=== PATIENT | male | born 1965 | race Caucasian/White ===

== ENCOUNTER 2018-12-27 16:48 | Emergency (ER) | payer OTHER, SELFPAY ==
[2018-12-27 17:13] VITALS: BMI 35.5
--- NOTE | 2018-12-27 17:30 | ED.ABDPAIN ---
HPI - Abdominal Pain <COY Doyle - Last Filed: 12/27/18 22:18> General Chief Complaint: Abdominal Pain Stated Complaint: ABD PAIN Time Seen by Provider: 12/27/18 17:29 Source: patient Mode of arrival: ambulatory Limitations: no limitations History of Present Illness HPI narrative: 53-year-old male with history of hypertension is a nonsmoker here for complaint of pain into his umbilical area over the last day. He denies any trauma to the area. He does report increased pain with motion of the torso area. No nausea or vomiting. He denies having any strenuous activities in the past. Last bowel movement was earlier today and was unremarkable. Positive p.o. intake no nausea vomiting. He denies any urinary symptoms. No other concerns or complaints at this timeframe. Related Data Home Medications Medication Instructions Recorded Confirmed citalopram 1 tab PO QDAY #30 08/28/16 12/27/18 melatonin 3 mg PO HS #0 07/24/17 12/27/18 fluticasone 50 mcg/actuation nasal 1 spray NASAL DAILY 12/27/18 12/27/18 spray,suspension Previous Rx's Medication Instructions Recorded hydroxyzine HCl 25 mg tablet 25 mg PO QDAY PRN #30 tab 04/14/18 trazodone 100 mg tablet 100 mg PO HS #30 tab 04/14/18 lisinopril 10 mg tablet 10 mg PO QDAY #90 tab 07/02/18 simvastatin 80 mg tablet 80 mg PO HS #90 tab 07/02/18 temazepam 15 mg capsule 15 mg PO BEDTIME PRN #30 cap 07/02/18 tramadol 50 mg tablet 50 mg PO Q4HP PRN #30 tab 10/05/18 zolpidem 10 mg tablet 10 mg PO BEDTIME PRN #30 tab 10/05/18 Allergies Allergy/AdvReac Type Severity Reaction Status Date / Time No Known Drug Allergies Allergy Verified 12/27/18 16:27 Review of Systems <COY Doyle - Last Filed: 12/27/18 22:18> Constitutional Denies chills, Denies fever(s), Denies lethargy and Denies weakness Eyes Denies change in vision, Denies eye discharge, Denies irritation and Denies loss of vision ENT Ears, Nose, Mouth, and Throat: Denies change in voice, Denies neck pain and Denies sore throat Cardiovascular Denies chest pain, Denies irregular heart rhythm, Denies lightheadedness, Denies palpitations, Denies dyspnea, Denies dyspnea on exertion and Denies orthopnea Respiratory Denies cough, Denies dyspnea, Denies dyspnea on exertion and Denies wheezing Gastrointestinal Gastrointestinal: Denies abdominal pain, Denies change in bowel habits, Denies diarrhea, Denies nausea and Denies vomiting Comments: Pain into umbilical area Musculoskeletal Denies neck pain Neurologic Denies confusion, Denies loss of vision and Denies weakness Psychiatric Denies anxiety, Denies confusion, Denies depression, Denies homicidal ideation and Denies suicidal ideation Endocrine Denies palpitations Hematologic/Lymphatic Denies easy bruising Allergic/Immunologic Denies wheezing PFSH <COY Doyle - Last Filed: 12/27/18 22:18> Medical History Anxiety (Chronic 05/26/16) Essential hypertension (Chronic 05/26/16) Posttraumatic stress disorder (Chronic 05/26/16) Pure hypercholesterolemia (Chronic 05/26/16) Chronic left-sided low back pain without sciatica (Chronic 07/24/17) Primary insomnia (Chronic 07/24/17) Anxiety (Chronic ~1995) Chronic back pain (Chronic ~2000) Hypercholesterolemia (Chronic ~05/2016) Hypertension (Chronic ~05/2016) Insomnia (Chronic ~07/2017) PTSD (post-traumatic stress disorder) (Chronic ~1995) Sleep apnea (Chronic ~2005) Surgical History S/P surgical manipulation of ankle joint (Chronic) Family History Father MS (multiple sclerosis) Mother Pancreatic cancer Social History Smoking Status: Never smoker alcohol intake: never Social History Smoking Status: Never smoker alcohol intake: never Exam <COY Doyle - Last Filed: 12/27/18 22:18> Initial Vital Signs Initial Vital Signs: Vital Signs Temperature 98.0 F 12/27/18 17:32 Pulse Rate 91 H 12/27/18 17:32 Respiratory Rate 18 12/27/18 17:32 Blood Pressure 143/93 H 12/27/18 17:32 Pulse Oximetry 96 12/27/18 17:32 Const General: cooperative and well developed Nutritional Appearance: well nourished Orientation: alert, awake, oriented x3 and not confused [facility] Mouth: oral mucosae normal and mucous membranes abnormal Throat: posterior oropharynx normal Eyes General: appearance normal, both eyes and all related structures Eyelids: eyelids normal Conjunctivae: conjunctivae normal Sclera: sclerae normal Pupils: PERRL EOM: EOM intact bilaterally Resp Effort & Inspection: normal respiratory effort, able to speak in complete sentences, no respiratory distress and no use of accessory muscles Auscultation: clear to auscultation bilaterally, no rales, no rhonchi and no wheezes Cardio Rate: regular rate Rhythm: regular rhythm Heart Sounds: no click, no gallops, no murmurs and no rubs Pulses: normal peripheral pulses GI Inspection: non-distended Palpation: soft, no hepatosplenomegaly, No guarding, No pulsatile mass and tender Auscultation: normal bowel sounds Other: Tenderness on child palpation to the umbilicus area. No induration or fluctuance felt. No appreciated hernia. Slight amount of erythema to the umbilicus area. No drainage. Neuro General: alert, oriented x3, gait normal and no focal motor deficits Speech: speech normal <Susan Rose DO - Last Filed: 12/28/18 04:28> Initial Vital Signs Initial Vital Signs: Vital Signs Temperature 98.0 F 12/27/18 17:32 Pulse Rate 91 H 12/27/18 17:32 Respiratory Rate 18 12/27/18 17:32 Blood Pressure 143/93 H 12/27/18 17:32 Pulse Oximetry 96 12/27/18 17:32 Course <COY Doyle - Last Filed: 12/27/18 22:18> Orders Ordered: Discontinued Medications Sodium Chloride (Normal Saline 0.9%) 1,000 mls @ 150 mls/hr IV CONT TAMARA Last Infusion: 12/27/18 21:35 Dose: 0 mls/hr Admin: 12/27/18 19:11 Dose: 150 mls/hr Vital Signs - 8 hr 12/27/18 21:33 Pulse Rate 63 Blood Pressure [Right Arm] 163/85 H Pulse Oximetry 96 <Susan Rose DO - Last Filed: 12/28/18 04:28> Orders Ordered: Discontinued Medications Sodium Chloride (Normal Saline 0.9%) 1,000 mls @ 150 mls/hr IV CONT TAMARA Last Infusion: 12/27/18 21:35 Dose: 0 mls/hr Admin: 12/27/18 19:11 Dose: 150 mls/hr Vital Signs - 8 hr 12/27/18 21:33 Pulse Rate 63 Blood Pressure [Right Arm] 163/85 H Pulse Oximetry 96 MDM - Abdominal Pain <COY Doyle - Last Filed: 12/27/18 22:18> Lab Data Result diagrams: 12/27/18 17:42 12/27/18 17:42 Lab Results 12/27/18 12/27/18 12/27/18 Range/Units 17:42 17:42 18:50 WBC 6.1 (4.5-11.0) X10^3/uL RBC 5.14 (4.5-5.9) X10^6/uL Hgb 15.3 (13.5-17.5) g/dL Hct 45.7 (41-53) % MCV 88.9 (80-100) fL MCH 29.7 (26-34) PG MCHC 33.4 (30-36) % RDW 13.3 (11.6-14.8) % Plt Count 253 (150-400) X10^3/uL Neut % (Auto) 62.1 (50-75) % Lymph % (Auto) 25.1 (25-40) % [place] % (Auto) 9.8 (3-14) % Eos % (Auto) 2.7 (2-4) % Baso % (Auto) 0.3 (0-2) % Neut # (Auto) 3800 (3026-2825) /uL Lymph # (Auto) 1500 (0532-2236) /uL [place] # (Auto) 600 (0-900) /uL Eos # (Auto) 200 (0-450) /uL Baso # (Auto) 0 (0-100) /uL Sodium 139 (137-145) mmol/L Potassium 4.1 (3.4-5.1) mmol/L Chloride 101 (98-107) mmol/L Carbon Dioxide 31 (22-32) mmol/L BUN 15 (9-20) mg/dL Creatinine 0.90 (0.66-1.25) mg/dL Estimated GFR > 60.0 (>60) mL/min BUN/Creatinine Ratio 16.7 (6-22) Glucose 135 H (70-100) mg/dL Calcium 9.3 (8.4-10.2) mg/dL Total Bilirubin 0.5 (0.2-1.3) mg/dL AST 29 (17-59) IU/L ALT 34 (21-72) IU/L Alkaline Phosphatase 49 (38-126) U/L Total Protein 7.6 (6.3-8.2) g/dL Albumin 4.4 (3.5-5.0) g/dL Globulin 3.2 (1.7-4.1) g/dL Albumin/Globulin Ratio 1.4 (1.0-2.8) Lipase 76 (23-300) U/L Urine RBC None seen (0-5/HPF) Urine WBC None seen (0-5/HPF) Urine Bacteria None seen (None) Ur Culture Indicated? Cult not indicated Point of care testing: Urine Dip Bedside Urine Glucose Negative Bedside Urine Bilirubin - Negative Bedside Urine Ketone - Negative Urine Specific [place] 1.020 Bedside Urine Occult Blood - Negative Bedside Urine pH 7.0 Bedside Urine Protein - Negative Bedside Urine Urobilinogen 1+ 2mg Bedside Urine Nitrite - Negative Bedside Urine Leukocytes - Negative Esterase Imaging Data US - abdomen: Radiologist's impression: [address] [address] Ultrasound Report Signed Patient: Josiah Akins [facility]#: [id number] : 1965Acct:[id number] Age/Sex: 53 / MDate of Service: 12/27/18 Loc: ED Accession Number: [id number] Procedure: US abdomen complete Ordering Provider: Lawrence Porter PROCEDURE: US ABDOMEN COMPLETE INDICATIONS: Umbilical pain TECHNIQUE: Real-time scanning was performed of the abdominal and retroperitoneal organs, with image documentation. COMPARISON: None. FINDINGS: Liver: Liver is normal in size and demonstrates mildly increased echotexture. Gallbladder: Gallbladder is contracted. No gallstones. The gallbladder wall appears thickened measuring 7.3 mm. No pericholecystic fluid or sonographic Andersen's sign. Biliary ducts: Intrahepatic bile ducts are non-dilated. Extrahepatic bile duct caliber measures 5.6 mm. Normal is 6-7 mm or less in diameter, or 10 mm or less post-cholecystectomy. Pancreas: Not visualized. Spleen: Spleen is normal in size and homogeneous in echotexture. Kidneys: Kidneys are normal in size and echotexture. Right kidney measures 14.0 cm long; left kidney measures 13.5 cm long. No hydronephrosis or nephrolithiasis. No solid masses. Aorta: Visualized aorta is normal in caliber at less than 3 cm. Iliacs: Proximal common iliac arteries are obscured. IVC: Intrahepatic inferior vena cava is patent. Miscellaneous: No free abdominal fluid. In the periumbilical area with pain and redness, there is no mass or fluid collection. No hernia. IMPRESSION: 1. No mass, fluid collection or hernia is identified in the periumbilical area. 2. Diffusely increased hepatic echotexture. This finding is most likely secondary to hepatic fatty infiltration although other hepatocellular disease may have a similar appearance. Recommend clinical correlation. 3. Gallbladder is contracted. Gallbladder wall thickening is noted, which could be partially related to contracted bladder. No gallstones or pericholecystic fluid collection. If there is clinical suspicion for gallbladder disease, MRCP may be obtained for followup evaluation. Dictated by: Fidelia Beltran M.D. on 12/27/2018 at 20:25 Approved by: Fidelia Beltran M.D. on 12/27/2018 at 20:30 MDM Narrative Medical decision making narrative: CBC and Chem panel were obtained were unremarkable. Lipase was obtained was negative. Abdomen ultrasound was obtained and shows no mass no fluid collection or hernia at the periumbilical area. Ultrasound does show findings that are consistent with fatty liver. Gallbladder was contracted and appeared that the gallbladder was contracted he is not painful to the right upper quadrant area and did show that there might be some thickening of the gallbladder wall but this is most likely due to contracted bladder. Do not appreciate gallbladder disorder at this time.. Urinalysis was negative for urinary tract infection. Due to small amount of erythema to the periumbilical area will treat empirically for starting cellulitis with clindamycin. Follow up with primary care provider in the next several days for re-evaluation. Use [id number] Tylenol or Motrin as needed for any discomfot. For any worsening symptoms return to the emergency room. <Susan Milton, DO - Last Filed: 12/28/18 04:28> Lab Data Lab Results 12/27/18 12/27/18 12/27/18 Range/Units 17:42 17:42 18:50 WBC 6.1 (4.5-11.0) X10^3/uL RBC 5.14 (4.5-5.9) X10^6/uL Hgb 15.3 (13.5-17.5) g/dL Hct 45.7 (41-53) % MCV 88.9 (80-100) fL MCH 29.7 (26-34) PG MCHC 33.4 (30-36) % RDW 13.3 (11.6-14.8) % Plt Count 253 (150-400) X10^3/uL Neut % (Auto) 62.1 (50-75) % Lymph % (Auto) 25.1 (25-40) % [place] % (Auto) 9.8 (3-14) % Eos % (Auto) 2.7 (2-4) % Baso % (Auto) 0.3 (0-2) % Neut # (Auto) 3800 (8958-4319) /uL Lymph # (Auto) 1500 (2974-1475) /uL [place] # (Auto) 600 (0-900) /uL Eos # (Auto) 200 (0-450) /uL Baso # (Auto) 0 (0-100) /uL Sodium 139 (137-145) mmol/L Potassium 4.1 (3.4-5.1) mmol/L Chloride 101 (98-107) mmol/L Carbon Dioxide 31 (22-32) mmol/L BUN 15 (9-20) mg/dL Creatinine 0.90 (0.66-1.25) mg/dL Estimated GFR > 60.0 (>60) mL/min BUN/Creatinine Ratio 16.7 (6-22) Glucose 135 H (70-100) mg/dL Calcium 9.3 (8.4-10.2) mg/dL Total Bilirubin 0.5 (0.2-1.3) mg/dL AST 29 (17-59) IU/L ALT 34 (21-72) IU/L Alkaline Phosphatase 49 (38-126) U/L Total Protein 7.6 (6.3-8.2) g/dL Albumin 4.4 (3.5-5.0) g/dL Globulin 3.2 (1.7-4.1) g/dL Albumin/Globulin Ratio 1.4 (1.0-2.8) Lipase 76 (23-300) U/L Urine RBC None seen (0-5/HPF) Urine WBC None seen (0-5/HPF) Urine Bacteria None seen (None) Ur Culture Indicated? Cult not indicated Point of care testing: Urine Dip Bedside Urine Glucose Negative Bedside Urine Bilirubin - Negative Bedside Urine Ketone - Negative Urine Specific [place] 1.020 Bedside Urine Occult Blood - Negative Bedside Urine pH 7.0 Bedside Urine Protein - Negative Bedside Urine Urobilinogen 1+ 2mg Bedside Urine Nitrite - Negative Bedside Urine Leukocytes - Negative Esterase Discharge Plan Departure Patient Disposition: Home Clinical Impression: Umbilical pain Discharge Date/Time: 12/27/18 21:44 Interventions: ED Discharge Assessment Last Done: 12/27/18 21:38 Instructions: Acute Abdominal Pain Activity Restrictions/Additional Instructions: Laboratory results today were unremarkable. Ultrasound was negative for hernia or collection of fluid to the umbilicus area. Differential between muscle strain into the area and starting a skin infection called cellulitis. You are placed on an antibiotic called clindamycin use as directed. Use [id number] Tylenol or Motrin as needed for any discomfort. Follow up with primary care provider in the next several days for re-evaluation. For any worsening symptoms return to the emergency room. Incidental finding that ultrasound shows findings that looks like fatty liver. Prescriptions: No Action fluticasone [Allergy Relief (fluticasone)] 50 mcg/actuation spray,suspension 1 spray NASAL DAILY RF: 0 citalopram 40 MG tablet 1 tab PO QDAY Qty: 30 RF: 6 melatonin 3 MG tablet 3 mg PO HS Qty: 0 RF: 0 trazodone 100 mg tablet 100 mg PO HS Qty: 30 RF: 11 hydroxyzine HCl 25 mg tablet 25 mg PO QDAY PRN (Reason: anxiety) Qty: 30 RF: 11 lisinopril 10 mg tablet 10 mg PO QDAY Qty: 90 RF: 3 simvastatin 80 mg tablet 80 mg PO HS Qty: 90 RF: 3 temazepam 15 mg capsule 15 mg PO BEDTIME PRN (Reason: insomnia) Qty: 30 RF: 0 tramadol 50 mg tablet 50 mg PO Q4HP PRN (Reason: pain) Qty: 30 RF: 1 zolpidem 10 mg tablet 10 mg PO BEDTIME PRN (Reason: insomnia) Qty: 30 RF: 1 Referrals: Henry Fernandez MD [Primary Care Provider] - <Susan Rose DO - Last Filed: 12/28/18 04:28> Cosign ED Attending Adithyaature Attestation: I was immediately available in the department for consultation. Documentation has been reviewed. I agree with assessment and plan.
[2018-12-27 17:32] VITALS: BP 143/93; PULSE 91; RESP 18; TEMP 36.7; O2SAT 96
--- NOTE | 2018-12-27 18:33 | DI.US.S_ITS ---
PROCEDURE: US ABDOMEN COMPLETE INDICATIONS: Umbilical pain TECHNIQUE: Real-time scanning was performed of the abdominal and retroperitoneal organs, with image documentation. COMPARISON: None. FINDINGS: Liver: Liver is normal in size and demonstrates mildly increased echotexture. Gallbladder: Gallbladder is contracted. No gallstones. The gallbladder wall appears thickened measuring 7.3 mm. No pericholecystic fluid or sonographic Andersen's sign. Biliary ducts: Intrahepatic bile ducts are non-dilated. Extrahepatic bile duct caliber measures 5.6 mm. Normal is 6-7 mm or less in diameter, or 10 mm or less post-cholecystectomy. Pancreas: Not visualized. Spleen: Spleen is normal in size and homogeneous in echotexture. Kidneys: Kidneys are normal in size and echotexture. Right kidney measures 14.0 cm long; left kidney measures 13.5 cm long. No hydronephrosis or nephrolithiasis. No solid masses. Aorta: Visualized aorta is normal in caliber at less than 3 cm. Iliacs: Proximal common iliac arteries are obscured. IVC: Intrahepatic inferior vena cava is patent. Miscellaneous: No free abdominal fluid. In the periumbilical area with pain and redness, there is no mass or fluid collection. No hernia. IMPRESSION: 1. No mass, fluid collection or hernia is identified in the periumbilical area. 2. Diffusely increased hepatic echotexture. This finding is most likely secondary to hepatic fatty infiltration although other hepatocellular disease may have a similar appearance. Recommend clinical correlation. 3. Gallbladder is contracted. Gallbladder wall thickening is noted, which could be partially related to contracted bladder. No gallstones or pericholecystic fluid collection. If there is clinical suspicion for gallbladder disease, MRCP may be obtained for followup evaluation. Dictated by: Fidelia Beltran M.D. on 12/27/2018 at 20:25 Approved by: Fidelia Beltran M.D. on 12/27/2018 at 20:30
[2018-12-27 18:45] LABS: Add Manual Diff / Slide Review NO; Basophils Absolute Auto 0 /uL (0-100); Basophils Percent Auto 0.3 % (0-2); Eosinophils Absolute Auto 200 /uL (0-450); Eosinophils Percent Auto 2.7 % (2-4); Hematocrit 45.7 % (41-53); Hemoglobin 15.3 g/dL (13.5-17.5); Lymphocytes Absolute Auto 1500 /uL (1100-4500); Lymphocytes Percent Auto 25.1 % (25-40); Mean Corpuscular HGB Conc 33.4 % (30-36); Mean Corpuscular Hemoglobin 29.7 PG (26-34); Mean Corpuscular Volume 88.9 fL (80-100); Monocytes Absolute Auto 600 /uL (0-900); Monocytes Percent Auto 9.8 % (3-14); Neutrophils Absolute Auto 3800 /uL (1500-7000); Neutrophils Percent Auto 62.1 % (50-75); Platelet Count 253 X10^3/uL (150-400); Red Blood Cell Count 5.14 X10^6/uL (4.5-5.9); Red Cell Distribution Width 13.3 % (11.6-14.8); White Blood Cell Count 6.1 X10^3/uL (4.5-11.0)
[2018-12-27 18:50] LABS: Alanine Aminotransferase 34 IU/L (21-72); Albumin 4.4 g/dL (3.5-5.0); Albumin Globulin Ratio 1.4 (1.0-2.8); Alkaline Phosphatase 49 U/L (38-126); Aspartate Aminotransferase 29 IU/L (17-59); BUN Creatinine Ratio 16.7 (6-22); Bilirubin Total 0.5 mg/dL (0.2-1.3); Blood Urea Nitrogen 15 mg/dL (9-20); Calcium 9.3 mg/dL (8.4-10.2); Carbon Dioxide 31 mmol/L (22-32); Chloride 101 mmol/L (98-107); Estimated Glomerular Filt Rate > 60.0 mL/min (>60); Globulin 3.2 g/dL (1.7-4.1); Glucose 135 mg/dL (70-100); HEMOLYSIS 29 (0-50); Lipase 76 U/L (23-300); Potassium 4.1 mmol/L (3.4-5.1); Sodium 139 mmol/L (137-145); Total Protein 7.6 g/dL (6.3-8.2)
[2018-12-27 18:58] VITALS: BP 167/75; PULSE 62; RESP 18; O2SAT 98
[2018-12-27 19:00] VITALS: BP 161/84; PULSE 71; O2SAT 98
[2018-12-27 19:11] LABS: Bacteria Urine None Seen; WBC Urine None Seen (0-5/HPF)
[2018-12-27] MEDS: SODIUM CHLORIDE 0.9% 1,000 ML 150 ML IV (19:11)
[2018-12-27 19:23] LABS: Culture Indicated Urine Cult Not Indicated; RBC Urine None Seen (0-5/HPF)
[2018-12-27 20:21] VITALS: BP 157/86; PULSE 64; RESP 18; O2SAT 98
[2018-12-27 21:33] VITALS: BP 163/85; PULSE 63; O2SAT 96
== END 2018-12-27 21:44 | disposition home or self-care (01) ==
PROVIDERS: Emergency Provider Nurse Practitioner Family; PCP Family Medicine
DX: R10.33 Periumbilical pain (principal)
CPT/HCPCS: 36591; 76700; 80053; 81003; 81015; 83690; 85025; 96360; 96361; 99283; 99284

== ENCOUNTER → 2019-03-24 15:49 | Outpatient (CLI) | payer OTHER, SELFPAY ==
--- NOTE | 2019-03-24 15:51 | DI.RAD.S_ITS ---
PROCEDURE: XR KNEE LT 3V INDICATIONS: Left knee pain TECHNIQUE: 3 views of the knee were acquired. COMPARISON: None. FINDINGS: Bones: No fractures or dislocations. No suspicious bony lesions. Soft tissues: No joint effusion. No suspicious soft tissue calcifications. IMPRESSION: Unremarkable radiographic examination of left knee. Dictated by: Rylan Arguelles M.D. on 03/24/2019 at 16:27 Approved by: Rylan Arguelles M.D. on 03/24/2019 at 16:27
== END ==
PROVIDERS: PCP Family Medicine; Visit Provider Family Medicine
DX: M25.562 Pain in left knee (principal)
CPT/HCPCS: 73562

== ENCOUNTER → 2019-10-03 17:40 | Outpatient (CLI) | payer OTHER, SELFPAY ==
--- NOTE | 2019-10-03 | DI.MRI.S_ITS ---
PROCEDURE: MR LUMBAR SPINE WO CON INDICATIONS: Low back pain TECHNIQUE: Noncontrast sagittal T1 spin echo and T2 fast echo, sagittal STIR, axial T1 and T2 fast spin echo through the lumbar spine. In cases with scoliosis, additional coronal T2 fast spin echo may be performed. COMPARISON: None. FINDINGS: Image quality: Excellent. Alignment and Curvature: There is normal bony alignment. Bone Marrow: Marrow is of normal overall signal. No acute vertebral body compression fractures. Spinal Cord: Conus medullaris terminates at the L1-L2 level. Visualized cord demonstrates normal signal and size. Paraspinous Soft Tissues: No paravertebral masses. There is nonspecific, dependent posterior subcutaneous soft tissue edema from level of L2-sacrum L1-L2: Normal appearance. L2-L3: Normal appearance. L3-L4: No central canal or lateral recess narrowing. Mild bilateral foraminal stenoses. L4-L5: Posterior annular fissure. Minimal if any central canal narrowing. Partial effacement of both lateral recesses with bilaterally symmetric appearance. Moderate to severe right foraminal stenosis with nerve root compression. Severe left foraminal stenosis with nerve root compression L5-S1: No canal or lateral recess narrowing. Mild bilateral foraminal stenosis IMPRESSION: Mild lower lumbar spondylosis and facet disease no high-grade canal narrowing. Severe bilateral L4-L5 foraminal stenoses Mild bilateral L3-L4 and L5-S1 foraminal stenoses Dictated by: Spencer Blake M.D. on 10/04/2019 at 13:16 Approved by: Spencer Blake M.D. on 10/04/2019 at 13:22
== END ==
PROVIDERS: Family Provider Family Medicine; PCP Family Medicine; Visit Provider Physical Medicine & Rehabilitation
DX: M54.5 Low back pain (principal); M47.816 Spondylosis without myelopathy or radiculopathy, lumbar region; M48.061 Spinal stenosis, lumbar region without neurogenic claudication; M48.07 Spinal stenosis, lumbosacral region
CPT/HCPCS: 72148

== ENCOUNTER → 2020-06-30 08:14 | Outpatient (CLI) | payer OTHER, SELFPAY ==
[2020-06-30 09:20] LABS: Add Manual Diff / Slide Review NO; Basophils Absolute Auto 0 /uL (0-100); Basophils Percent Auto 0.4 % (0-2); Eosinophils Absolute Auto 100 /uL (0-450); Eosinophils Percent Auto 1.5 % (2-4); Hemoglobin 15.1 g/dL (13.5-17.5); Lymphocytes Absolute Auto 900 /uL (1100-4500); Lymphocytes Percent Auto 21.1 % (25-40); Mean Corpuscular HGB Conc 34.2 % (30-36); Mean Corpuscular Hemoglobin 30.1 PG (26-34); Mean Corpuscular Volume 87.8 fL (80-100); Monocytes Absolute Auto 400 /uL (0-900); Neutrophils Absolute Auto 3100 /uL (1500-7000); Platelet Count 212 X10^3/uL (150-400); Red Blood Cell Count 5.02 X10^6/uL (4.5-5.9); Red Cell Distribution Width 13.6 % (11.6-14.8); White Blood Cell Count 4.4 X10^3/uL (4.5-11.0)
[2020-06-30 09:41] LABS: Alanine Aminotransferase 29 IU/L (<50); Albumin 4.4 g/dL (3.5-5.0); Albumin Globulin Ratio 1.5 (1.0-2.8); Alkaline Phosphatase 53 U/L (38-126); Aspartate Aminotransferase 24 IU/L (17-59); Bilirubin Total 0.8 mg/dL (0.2-1.3); Blood Urea Nitrogen 16 mg/dL (9-20); Calcium 9.4 mg/dL (8.4-10.2); Carbon Dioxide 31 mmol/L (22-32); Chloride 101 mmol/L (98-107); Cholesterol 200 mg/dL (140-199); Estimated Glomerular Filt Rate > 60.0 mL/min (>60); Globulin 2.9 g/dL (1.7-4.1); Glucose 115 mg/dL (70-100); HDL Cholesterol 55 mg/dL (40-60); HEMOLYSIS < 15 (0-50); LDL Cholesterol Calculated 115 mg/dL (<100); Potassium 4.1 mmol/L (3.4-5.1); Sodium 137 mmol/L (137-145); Total Protein 7.3 g/dL (6.3-8.2); Triglycerides 149 mg/dL (35-150)
[2020-06-30 10:07] LABS: Prostate Specific Antigen Scrn 6.32 ng/mL (0.1-4.0)
== END ==
PROVIDERS: Family Provider Family Medicine; PCP Family Medicine; Referring Provider Family Medicine; Visit Provider Family Medicine
DX: E78.00 Pure hypercholesterolemia, unspecified (principal); Z12.5 Encounter for screening for malignant neoplasm of prostate
CPT/HCPCS: 36415; 80053; 80061; 85025; G0103